=== PATIENT | female | born 2000 | race Caucasian/White ===

== ENCOUNTER 2020-07-02 11:18 | Emergency (ER) | payer OTHER ==
[~2020-07-02] VITALS: Ht 162.6 cm; Wt 56.7 kg
== END 2020-07-02 13:35 | disposition home or self-care (01) ==
LOC: ER 11:18
DX: B34.9 Viral infection, unspecified (principal); Z20.822 Contact with and (suspected) exposure to COVID-19
CPT/HCPCS: 99284

== ENCOUNTER 2020-08-05 21:52 | Emergency (ER) | payer OTHER ==
[~2020-08-05] VITALS: Ht 165.1 cm; Wt 56.7 kg
== END 2020-08-05 23:38 | disposition home or self-care (01) ==
LOC: ER 21:52
DX: U07.1 COVID-19 (principal)
CPT/HCPCS: 99284